=== PATIENT | female | born 1965 | race Caucasian/White ===

== ENCOUNTER 2022-07-29 16:42 | Outpatient (CLI) | payer OTHER, SELFPAY ==
--- NOTE | 2022-07-29 17:15 | CRLHL7_ITS ---
For Patients: As a result of the Cures Act, medical imaging exams and procedure reports are released immediately into your electronic medical record. You may view this report before your referring provider. If you have questions, please contact your health care provider. BILATERAL SCREENING MAMMOGRAM WITH COMPUTER-AIDED DETECTION AND TOMOSYNTHESIS TECHNIQUE: CC and MLO views were obtained. These mammographic images have been obtained using full-field digital technique. These mammographic images were interpreted with the benefit of computer-aided detection. Breast Tomosynthesis was used in this interpretation. COMPARISON FILM: 05/28/21, 04/06/20, 08/24/18. FINDINGS: There are scattered areas of fibroglandular density IMPRESSION: There is no radiographic evidence for malignancy. ASSESSMENT: BI-RADS Category 1: Negative RECOMMENDATION: Routine screening mammogram in 1 year. A lay language report of this examination will be provided to the patient. Shin Mercer M.D. Diagnostic Radiologist [email or web address] TALIA/rosenda / be/Dictated by: Sihn Mercer MD @ 07/30/2022 11:54:00 AM (Electronically Signed)
== END 2022-07-29 16:43 | disposition home or self-care (01) ==
LOC: MAMMO 16:45
PROVIDERS: PCP Family Medicine; Visit Provider Family Medicine
DX: Z12.31 Encounter for screening mammogram for malignant neoplasm of breast (principal)
CPT/HCPCS: 77063; 77067

== ENCOUNTER 2023-02-06 13:47 | Outpatient (CLI) | payer BC, SELFPAY ==
--- NOTE | 2023-02-06 14:00 | CRLHL7_ITS ---
For Patients: As a result of the Century Cures Act, medical imaging exams and procedure reports are released immediately into your electronic medical record. You may view this report before your referring provider. If you have questions, please contact your health care provider. INDICATION: Hematuria. TECHNIQUE: CT abdomen and pelvis urogram without and with 100 cc Isovue 370 IV contrast. Contrast images were obtained in the nephrographic and delayed phases. COMPARISON: None. FINDINGS: KIDNEYS: The unenhanced images demonstrate no kidney or ureteral stones. The kidneys are normal in caliber and demonstrate normal uptake and excretion of IV contrast. No masses. The renal collecting systems and ureters are symmetrical, normal in caliber, and without evidence of mass or filling defect. URINARY BLADDER: The urinary bladder is normal in caliber and without evidence of mass, wall thickening, or inflammation. OTHER: Lung bases are clear. Multiple small intrahepatic cysts are present. Incidental gallbladder fold noted without gallstones. Spleen normal. Normal pancreas and adrenal glands. No bowel obstruction or free air. Mild nonspecific pelvic free fluid. No abscess. No pelvic mass. No fracture. Multilevel degenerative disc disease throughout the lumbar spine. IMPRESSION: 1. Unremarkable CT urogram. No findings to explain hematuria. 2. Multiple incidental intrahepatic cysts. Please note that all CT scans at this facility use dose modulation, iterative reconstruction, and/or weight-based dosing when appropriate to reduce radiation dose to as low as reasonably achievable. Dictated by Shin Mercer MD @ 02/10/2023 9:59:38 AM (Electronically Signed)
== END 2023-02-06 13:48 | disposition home or self-care (01) ==
LOC: CT 13:49
PROVIDERS: PCP Family Medicine; Visit Provider Family Medicine
DX: R31.9 Hematuria, unspecified (principal); K76.89 Other specified diseases of liver
CPT/HCPCS: 74178; Q9967

== ENCOUNTER 2023-03-09 16:49 | Outpatient (CLI) | payer BC, SELFPAY ==
--- NOTE | 2023-03-09 17:00 | CRLHL7_ITS ---
For Patients: As a result of the Century Cures Act, medical imaging exams and procedure reports are released immediately into your electronic medical record. You may view this report before your referring provider. If you have questions, please contact your health care provider. INDICATION: gross hematuria COMPARISON: none TECHNIQUE: 2D figueroa scale and color Doppler images were acquired of the pelvis using a transabdominal and transvaginal approach. FINDINGS: The uterus is absent. Mild pelvic free fluid is noted. The right ovary is absent. Left ovary measures 1.4 x 0.9 x 1.2 cm. The left ovary demonstrates normal arterial and venous blood flow on color Doppler analysis. IMPRESSION: Normal left ovary. Status post hysterectomy and right oophorectomy. Dictated by Shin Mercer MD @ 03/10/2023 10:41:20 AM (Electronically Signed)
== END 2023-03-09 16:50 | disposition home or self-care (01) ==
LOC: US 16:50
PROVIDERS: PCP Family Medicine; Visit Provider Family Medicine
DX: R31.0 Gross hematuria (principal)
CPT/HCPCS: 76830; 76856

== ENCOUNTER 2023-08-31 07:29 | Outpatient (CLI) | payer BC, SELFPAY ==
--- NOTE | 2023-08-31 07:45 | MM_ITS ---
Patient: AILEEN WU Facility:?[facility] Patient ID:?[id number] Site Patient ID:?[id number]. Site :?[id number] Study:?XRay-Breast Bilateral 3D W/CAD-08/31/2023 8:01:29 AM Ordering Physician:?Narayan Ortega Final Report: BILATERAL SCREENING MAMMOGRAM WITH COMPUTER-AIDED DETECTION AND TOMOSYNTHESIS TECHNIQUE: CC and MLO views were obtained. These mammographic images have been obtained using full-field digital technique. These mammographic images were interpreted with the benefit of computer-aided detection. Breast tomosynthesis was used in this interpretation. COMPARISON FILM: 07/29/22, 05/28/21/, 04/03/21. FINDINGS: There are scattered areas of fibroglandular density. IMPRESSION: There is no radiographic evidence for malignancy. ASSESSMENT: BI-RADS Category 1: Negative RECOMMENDATION: Routine screening mammogram in 1 year. A lay language report of this examination will be provided to the patient. HARSH BUENO M.D. Diagnostic Radiologist [email or web address] TALIA/yamini D& Transcribed: 5:[address]/Dictated by: Harsh Bueno MD @ 09/10/2023 12:55:00 PM Signed by:?Harsh Bueno MD @09/10/2023 8:24:20 PM (Electronic Signature)
== END 2023-08-31 07:30 | disposition home or self-care (01) ==
LOC: MAMMO 07:30
PROVIDERS: PCP Family Medicine; Visit Provider Family Medicine
DX: Z12.31 Encounter for screening mammogram for malignant neoplasm of breast (principal)
CPT/HCPCS: 77063; 77067

== ENCOUNTER 2023-11-18 10:00 | Outpatient (CLI) | payer BC, SELFPAY ==
--- OUTSIDE RECORDS SUMMARY | 2023-11-18 10:06 | XMS_ITS | Data Portability ---
Author Organization [facility] Perilo gy, [facility] Address [address] [place] [address] Care Team Providers Care Senior Account Clerk Name Role Phone MACI CARL Primary Care Provider Assessment No assessment recorded. Plan of Treatment Reminders Order Date Submit Date Provider Last Modified By Organization Details Last Modified Time Details Appointments None recorded. Lab urinalysi s, dipstick 2023 024 [facility], [address] [place] [address], [address], [address], Ph 4 11:56:59 urinalysi s, dipstick 2022 023 [email or web address], [address] [place] [address], [facility] [address], [address], Ph 3 10:04:05 Referral None recorded. Procedures bladder scan (PROC) 2023 024 [facility], [address] [place] [address], [facility] [address], [address], Ph 4 11:56:59 Surgeries None recorded. Imaging None recorded. Medication Orders None recorded. Patient TargetsNo targets recorded. Patient Instructions Encounter Date Encounter Id Patient Instructions Last Modified By Organization Details Last Modified Time 08/13/2023 [id number] Jade Jmrenan i s a 58-year-old female who was referred to me for further evaluation and management of gross hematuria. Patient was last seen by her primary care provider on 01/23/2023. All outside documents personally reviewed and interpreted. She has history of hypertension and hypothyroidism. She complained of recurrent urinary tract infections associated with lower abdominal pain and suprapubic pain. Noticed a single episode of gross hematuria. History of hysterectomy. No dysuria. No flank pain. She was treated with cefuroxime 500 mg twice daily for a suspected urinary tract infection. Urinalysis ultimately was negative. CT urogram was performed 02/11/2023. This was unremarkable. 02/12/2023: She underwent cystoscopy for hematuria workup. This was unremarkable. She complained of minimal bother from stress urinary incontinence but did complain of overactive bladder. She was counseled regarding behavioral modifications for overactive bladder symptoms. She returns today for follow-up. Reviewed options for OAB and incontinence. Not a concern at this time. Discussed PFPT initially if symptoms become bothersome. She is interested in observation at this time. Hematuria has resolved. Plan: - Follow up with gynecology regarding labial cyst - Monitor OAB and incontinence symptoms - Hematuria has resolved - Follow up with de DENICE dolan Not available 08/13/2023 10:51:52 02/12/2023 [id number] Jade Lynn i s a 57-year-old female who was referred to me for further evaluation and management of gross hematuria. Patient was last seen by her primary care provider on 01/23/2023. All outside documents personally reviewed and interpreted. She has history of hypertension and hypothyroidism. She complained of recurrent urinary tract infections associated with lower abdominal pain and suprapubic pain. Noticed a single episode of gross hematuria. History of hysterectomy. No dysuria. No flank pain. She was treated with cefuroxime 500 mg twice daily for a suspected urinary tract infection. Urinalysis ultimately was negative. CT urogram was performed 02/11/2023. This was unremarkable. Long discussion with patient regarding the various possible etiologies of gross hematuria. I advised that these include urinary tract infection, urinary calculus disease, trauma to the urinary tract, vascular malformation within the urinary tract, or urinary tract malignancy, among others. I advised that the work-up for gross hematuria consists of a CT urogram as well as cystoscopy to evaluate the lining of the bladder for malignancy. Cystoscopy showed no concerning findings for stones, tumors, or inflammation. UA negative. Long discussion with patient regarding the pathophysiology of overactive bladder. I discussed with her behavioral modifications for symptom improvement including increasing fluid intake, the double voiding twice daily, avoiding bladder irritants, timed voiding, stopping fluid intake 2 hours before bed. Mild bother from ELISABET. Plan: - RTC in 6 months with UA and PVR - Behavioral modifications for OAB symptoms - Monitor ELISABET [email or web address] Not available 02/12/2023 10:34:41 Reason for Referral None Reported. Results Created Date Observation Date Name Description Value Unit Range Abnormal Flag LastModifiedBy Organization Detail LastModifiedTime 02/13/20 23 02/12/2023 urina lysis , dipst ick pH 7.0 Not Available [address], [place], [address], Ph 02/12/2023 10:03:40 08/13/19 24 08/13/2023 urina lysis , dipst ick pH 6.5 Not Available [address], [place], [address], Ph 08/13/2023 10:40:53 08/13/19 24 08/13/2023 bladd er scan (PROC ) Volume (in mL) 0 Not Available [address], [place], [address], Ph 08/13/2023 10:40:57 02/12/[address], urogr am No observ ation record ed. [id number] Not Available 023 13:07:40 Result Notes None recorded. Problems Name Status Onset Date Resolution Date Notes Provider Name and Address Organization Details Recorded Time Rajendra hematuria Active 02/12/20 Jeremias Blunt MD [address] [place] [address],[address], [address], [facility] 02/11/2023 21:38:17 Overactive bladder Active 02/13/20 Jeremias Blunt MD [address] [place] [address],[address], [address], [facility] 02/12/2023 10:26:47 Female stress incontinence Active 02/13/20 23 Jeremias Blunt MD [address] [facility] [phone], [facility] 02/12/2023 10:27:14 Problem Notes None recorded. Procedures Surgical History Date Name Laterality Status Provider Name and Address Organization Details Recorded Time 02/13/20 23 Cystoscopy- female completed Jeremias Blunt MD [address] [place] [address],[address], [place] [phone], [facility] 02/11/2023 21:38:11 02/16/20 15 Colonoscopy completed Poornima Garcia [facility] 02/12/2023 09:56:25 thyroidectomy completed Tonja Alonso [facility] 02/05/2023 15:14:56 hysterectomy completed Viiv Beckwith [facility] 02/11/2023 14:43:18 Imaging Results Imaging Date Name Status LastModified by Organiz ation Details LastModified Time 02/11/2023 CT, urogram completed [id number] Informati on not available 02/11/2023 13:07:40 Procedure Notes None recorded. Medical Equipment None Reported. Allergies Allergen ID Allergen Name Allergen Category Reaction Reaction Severity Criticality Documentation Date Start Date Code Code System Note Provider Name and Address Organization Details Recorded Time 009760 Substance with sulfonami de structure and antibacte rial mechanism of action (substanc e) medicatio n Not available Not available Not available 02/12/2023 74237 8003 SNOMED Poornima Garcia [facility] 3 09:55:05 423218 Product containin g angiotens in-conver ting enzyme inhibitor (product) medicatio n Not available Not available Not available 02/12/2023 52924 009 SNOMED Poornima Garcia [facility] 3 09:55:11 Medications Name Sig Start Date Stop Date Status Note LastModified by Organization Details LastModified Time losartan 25 mg tablet TAKE ONE TABLET BY MOUTH ONCE DAILY active Not Available Not Available No t Available cefuroxime axetil 500 mg tablet TAKE ONE TABLET BY MOUTH TWICE A DAY FOR 7 DAYS 02/12 completed Not Available Not Available Not Available atenolol 50 mg tablet TAKE ONE TABLET BY MOUTH ONCE DAILY active Not Available Not Available No t Available levothyroxine 112 mcg tablet TAKE ONE TABLET BY MOUTH ONCE DAILY active Not Available Not Available No t Available Vitals Date Recorded Body height Body mass index (BMI) Body weight Heart rate Body temperature Oxygen saturation Oxygen saturation in Arterial blood by Pulse oximetry Systolic blood pressure Diastolic blood pressure Provider Name and Address Organization Details Last Updated DateTime 157.48 cm 32.8 kg/m2 90592 g 49 /min 98.24 [degF] 99 % 99 % 145 mm[Hg] 71 mm[Hg] Tonja Alonso [facility] 15:11:29 Date Recorded Body height Body mass index (BMI) Body weight Provider Name and Address Organization Details Last Updated DateTime 02/12/2023 157.48 cm 32 kg/m2 10031.66 g Poornima Garcia [facility] 02/12/2023 09:54:56 Date Recorded Body height Body mass index (BMI) Body weight Provider Name and Address Organization Details Last Updated DateTime 08/13/2023 157.48 cm 32 kg/m2 46689.66 g Jami Chávez [facility] 08/13/2023 10:26:41 Social History Question Answer Notes LastModified by Organizat ion Details LastModified Time Tobacco Smoking Status Never Smoker Tonja Alonso [facility] 02/05/2023 15:16:12 What Is Your Level Of Alcohol Consumption? Occasional Information not available 02/12/2023 What Is Your Level Of Caffeine Consumption? Moderate Information not available 02/12/2023 Ethnicity Not /Latin o Information not available 02/12/2023 Preferred Language German Information not available 02/12/2023 What Was The Date Of Your Most Recent Tobacco Screening? 08/13/2023 [email or web address] Information not available 08/13/2023 Have You Ever Been Counseled For Unhealthy Alcohol Use? No Information not available 02/12/2023 What Is Your Relationship Status? Information not available 02/12/2023 Do You Use Any Illicit Or Recreational Drugs? No [email or web address] Information not available 02/11/2023 Has Tobacco Cessation Counseling Been Provided? No [email or web address] Information not available 02/05/2023 Do You Or Have You Ever Used Any Other Forms Of Tobacco Or Nicotine? No [email or web address] Information not available 02/05/2023 How Many Days In The Past Year Have You Consumed 4 Or More Drinks? 0 Information no t available 02/12/2023 Sex: Female Functional Status None recorded. Mental Status None recorded. Family History Relationship Description Onset Age of this Age Resolved Age Notes Unspecified Relation Family history of breast cancer Unspecified Relation Family history of diabetes mellitus Unspecified Relation Family history of ischemic heart disease Unspecified Relation Family history of Hypothyroidism Unspecified Relation Family history of Hypertension Father Family history of malignant neoplasm of kidney Medical History Condition Response Sexually Transmitted Infection N Diabetes N Other Y Bleeding Disorder N High Blood Pressure Y Kidney Stones N High Cholesterol N GERD/Acid Reflux N Heart Disease N Cancer N Depression N Lung Disease Y Gynecological HistoryNo gynecological history recorded. Obstetrics History GPAL:G 0 P 0 0 0 0 Immunizations Vaccine Type Date Status Provider Name and Address Organization Details Recorded Time influenza, unspecified formulation 03/20/2010 [facility]/12[facility]23 09:53:55 influenza, unspecified formulation 05/01/2015 [facility] 02/12/2023 09:53:55 Tdap 02/10/2007 [facility] 02/12/2023 09:53:55 Influenza, split virus, trivalent, preservative 03/02/2013 [facility] 02/12/2023 09:53:55 Influenza, split virus, trivalent, preservative 03/19/2011 [facility] 02/12/2023 09:53:55 Influenza, split virus, trivalent, preservative 05/24/2012 [facility] 02/12/2023 09:53:55 Novel [id number] 04/27/2009 [facility] 02/12/2023 09:53:55 Td (adult), 2 Lf tetanus toxoid, preservative free, adsorbed 11/27/2020 completed Poornima nolan, [facility] 02/12/2023 09:53:55 Td (adult), 2 Lf tetanus toxoid, preservative free, adsorbed 05/17/2014 completed Poornima Garcia ovidio, [facility] 02/12/2023 09:53:55 Influenza, split virus, quadrivalent, PF 03/21/2019 completed Poornima Garcia ovidio, [facility] 02/12/2023 09:53:55 Influenza, split virus, quadrivalent, PF 04/17/2017 completed Poornima nolan, [facility] 02/12/2023 09:53:55 Influenza, split virus, quadrivalent, PF 04/27/2009 [facility] 09:53:55 Past Encounters Encounter ID Performer Location Encounter Start Date Encounter Closed Date Diagnosis/Indication Diagnosis SNOMED-CT Code [id number] Jeremias Blunt MD [address] [place] [address] 02/12/2023 09:45:40 02/12/2023 10:42:26 Rajendra hematuria [id number] Overactive bladder [address] incontinence [id number] Jeremias Blunt MD [address] [place] [address] 08/13/2023 10:24:25 08/13/2023 11:42:42 Female stress incontinence 01531534 Rajendra hematuria 32473190 5 Overactive bladder 58255 7000 Health Concerns Section Related Observation LastModified by Organization Detai ls LastModified Time None Recorded Concern Status LastModified by Organization Details LastModified Time None Recorded Advance Directives Directive None Recorded Payers Encounter Date Sequence Insurance Name Policy Number Policy Altamirano Covered Member ID Altamirano Member ID Guarantor Name 08/13/2023 1 [employer] [id number] Jade Lynn [id number] Jade Lynn 02/12/2023 1 [employer] [id number] Jade Lynn [id number] Jade Lynn Notes Date Note Type Note Provider Name and Address Organization Details Recorded Time 02/12/2023 text/html HPI Notes: Kiah Lynn is a 57-year-old female who was referred to de for further evaluation and management of gross hematuria. Patient was last seen by her primary care provider on 01/23/2023. All outside documents personally reviewed and interpreted. She has history of hypertension and hypothyroidism. She complained of recurrent urinary tract infections associated with lower abdominal pain and suprapubic pain. Noticed a single episode of gross hematuria. History of hysterectomy. No dysuria. No flank pain. She was treated with cefuroxime 500 mg twice daily for a suspected urinary tract infection. Urinalysis ultimately was negative. CT urogram was performed 02/11/2023. This was unremarkable. Patient had not had prior episodes of blood in her urine. Patient started to drink more water and the hematuria cleared up. No kidney stones. Patient has a history of UTIs, less than one a year. Patient has had a hysterectomy. Still has one ovary. No known toxin exposure. Jeremias Blunt MD [address] [place] [address],[address], [place], [address], [facility] 02/12/2023 10:34:58 08/13/2023 text/html HPI Notes: Kiah Lynn is a 58-year-old female who was referred to de for further evaluation and management of gross hematuria. Patient was last seen by her primary care provider on 01/23/2023. All outside documents personally reviewed and interpreted. She has history of hypertension and hypothyroidism. She complained of recurrent urinary tract infections associated with lower abdominal pain and suprapubic pain. Noticed a single episode of gross hematuria. History of hysterectomy. No dysuria. No flank pain. She was treated with cefuroxime 500 mg twice daily for a suspected urinary tract infection. Urinalysis ultimately was negative. CT urogram was performed 02/11/2023. This was unremarkable. 02/12/2023: She underwent cystoscopy for hematuria workup. This was unremarkable. She complained of minimal bother from stress urinary incontinence but did complain of overactive bladder. She was counseled regarding behavioral modifications for overactive bladder symptoms. She returns today for follow-up. Has been seen by her OB recently for evaluation of a hymenal tag. That was removed and was found to be benign. Also reports a blood blister just inside the labia. 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 No recurrent gross hematuria. No voiding concerns today. Denied frequency or urgency. Wears a light pad for the incontinence. Denied any ELISABET. Not a concern. Jeremias Blunt MD [address], [place], [address], [facility] 08/13/2023 11:37:51 OBGyn Episode No OBEpisode recorded.
--- OUTSIDE RECORDS SUMMARY | 2023-11-18 10:06 | XMS_ITS | Clinical Summary ---
Author Organization [facility] Address [place], [place] [address] Care Team Providers Care Post Office Markup Clerk Name Role Phone Shin Rice MD Primary Care Provider [phone]- [phone] Allergies Active Allergy Reactions Criticality Noted Date Comments Sulfamethoxazole-Trimethoprim 2010 Sulfa (Sulfonamide Antibiotics) 08/06 Medications Medication Sig Dispensed Refills Start Date End Date Status ATENOLOL ORAL Take by mouth. Active medication order composerIndications :hypertension 1 tablet once daily. Indications: HYPERTENSION Active Levothyroxine 125 mcg cap Take 1 tablet by mouth once daily. Active valsartan-hydrochlo rothiazide, 80-12.5 mg, (DIOVAN HCT) 80-12.5 mg tablet Take 1 tablet by mouth once daily. 0 10/24/2014 Active Family History Medical History Relation Name Comments Cancer Father kidney Cancer-breast Mother age 55 of breast c Cancer-breast Sister dx'd age 43 Cancer-colon No Family History Cancer-ovarian No Family History Cancer-prostate No Family History Relation Name Status Comments Father kidney Alive Mother age 55 of breast c Sister Social History Tobacco Use Types Packs/Day Years Used Date Smoking Tobacco: Never Smokeless Tobacco: Never Alcohol Use Standard Drinks/Week Comments No 0 (1 standard drink = 0.6 oz pur e alcohol) Sex and Gender Information Value Date Recorded Sex Assigned at Not on file Gender Identity Not on file Sexual Orientation Not on file Obstetrics History Para Term AB IAB SAB Ectopic Multiple Livin g Live Births 4 2 2 2 2 2 Date Outcome GA Total Labor Labor/2nd/3rd Weight Sex Type Anes PTL Maile A1 A5 Name Clin SAB SAB Term Term Last Filed Vital Signs Vital Sign Reading Time Taken Comments Blood Pressure 112/64 10/24/2014 3:44 PM CDT Pulse 76 10/24/2014 3:44 PM CDT Temperature - - Respiratory Rate 18 08/18/2014 3:45 PM CDT Oxygen Saturation 99% 08/18/2014 3:45 PM CDT Inhaled Oxygen Concentration - - Weight 74.1 kg (163 lb 6.4 oz) 10/24/2014 3:44 P M CDT Height 157.5 cm (5' 2) 08/22/2010 10:45 AM CDT Body Mass Index 29.89 08/22/2010 10:45 AM CDT Plan of Treatment Health Maintenance Due Date Last Done Comments Tdap 02/22/1975 Depression screening for age 12+ 1976 HIV for age 15-65 02/22/1979 BMI (ht and wt on same day) for age 18+ 02/22/1982 Hepatitis C screening for age 18-79 02/22/1982 Tetanus booster 1984 Pap test for age 21-65 02/22/1985 Lipids for age 45-75 02/22/2009 Zoster (shingles) series for age 50+ (1 of 2) 02/22/2014 Mammogram for age 45-75 08/26/2016 08/27/19 16, 06/29/2014, 06/14/2013, Additional history exists COVID-19 vaccine series ( - 2022-24 season) 2023 Influenza for age 50-64 02/07/2024 Colonoscopy through age 75 08/18/2024 08/18/2014 Pneumococcal series for age 6-64 Aged Out No longer eligible based on patient's age to complete this topic Procedures Procedure Name Priority Date/Time Associated Diagnosis Comments XR MAMMO BILAT SCREEN FFDM (IA) Routine 08/27/2015 11:46 AM CDT Visit for screening mammogram COLONOSCOPY 08/18/2014 2:16 PM CDT from Last 3 Months or Most Recently Relevant to Health Maintenance Results * XR MAMMO BILAT SCREEN FFDM (08/27/2015 11:46 AM CDT) Anatomical Region Laterality Modality BREASTS, Breast Left, Breast Right Bilateral Mammography Impressions 08/27/2015 1:32 PM CDT ??There is no radiographic evidence for malignancy. ??Recommend annual mammograms. A lay language report of this examination will be provided to the patient. MAMMOGRAM ASSESSMENT: ??ACR 1 Negative Narrative 08/27/2015 1:32 PM CDT XR MAMMO BILAT SCREEN FFDM [G0202.0] CLINICAL HISTORY: ??This is an asymptomatic 50 y.o. patient. INDICATION FOR EXAM: Mammogram Screening. TECHNIQUE: CC & MLO views were obtained. ??This digital study was evaluated with the assistance of Computer-Aided Detection. COMPARISON FILM: Yes 06/29/14 [facility] 06/14/13 [facility] FINDINGS: ??Mammographically, the breast tissue has scattered fibroglandular densities. ??There are no dominant masses, suspicious micro calcifications or areas of architectural distortion. Shin Rice MD MAMMO * COLONOSCOPY (08/18/2014 2:16 PM CDT) 08/18/2014 2:16 PM CDT Narrative 08/18/2014 2:16 PM CDT Endoscopy Patient Name: Jade Lynn ?Procedure Date: 08/18/2014 ? Gender: Female ? Date of : 1965 Admit Type: Outpatient ? Procedure: ?Colonoscopy Proceduralist: ?Phil Baker MD - [facility] ?[place] Referring : ? Shin Rice Indications/Pre-Op Diagnosis: Screening for colorectal malignant neoplasm, ?This is the patient's first colonoscopy Medications: ?Midazolam 4 mg IV, Fentanyl 200 micrograms IV ? Procedure Description: ? The patient had risks, benefits and alternatives explained to and gave ? informed consent. The patient had a stable cardiopulmonary status and ? judged an adequate candidate for conscious sedation. ? The endoscope was passed through the anus and advanced to the cecum, ? identified by appendiceal orifice and ileocecal valve. The colonoscopy ? was performed without difficulty. The patient tolerated the procedure ? well. The quality of the bowel preparation was good. ? Complications: ?No immediate complications. Estimated Blood Loss & Specimen: ? Estimated blood loss: none. ? Specimen collected: None ? Findings: ? The perianal and digital rectal examinations were normal. ? The entire examined colon appeared normal on direct and retroflexion ? views. ? Impressions/Post-Op Diagnosis: ? - The entire examined colon is normal on direct and retroflexion views. ? Recommendation: ? - Use fiber, for example Citrucel, Fibercon, Konsyl or Metamucil. ? - Repeat colonoscopy in 10 years for surveillance. ? Phil Baker MD 08/18/2014 2:53 PM This report has been signed electronically. Note Initiated On: 08/18/2014 2:16 PM Total Procedure Duration Time 0 hours 16 minutes 51 seconds Scope Withdrawal Time 0 hours 8 minutes 29 seconds Procedure Note Phil Baker MD - 08/18/2014 2:53 PM CDT Endoscopy Patient Name: Jade Lynn Procedure Date: 08/18/2014 Gender: Female Date of : 1965 Admit Type: Outpatient Procedure: Colonoscopy Proceduralist: Phil Baker MD - [facility] Referring MD: Shin Rice Indications/Pre-Op Diagnosis: Screening for colorectal malignant neoplasm, This is the patient's first colonoscopy Medications: Midazolam 4 mg IV, Fentanyl 200 microgramsIV Procedure Description: The patient had risks, benefits and alternatives explained to andgave informed consent. The patient had a stable cardiopulmonary status and judged an adequate candidate for conscious sedation. The endoscope was passed through the anus and advanced to the cecum, identified by appendiceal orifice and ileocecal valve. Thecolonoscopy was performed without difficulty. The patient tolerated the procedure well. The quality of the bowel preparation was good. Complications: No immediate complications. Estimated Blood Loss & Specimen: Estimated blood loss: none. Specimen collected: None Findings: The perianal and digital rectal examinations were normal. The entire examined colon appeared normal on direct and retroflexion views. Impressions/Post-Op Diagnosis: - The entire examined colon is normal on direct and retroflexionviews. Recommendation: - Use fiber, for example Citrucel, Fibercon, Konsyl or Metamucil. - Repeat colonoscopy in 10 years for surveillance. Phil Baker MD 08/18/2014 2:53 PM This report has been signed electronically. Note Initiated On: 08/18/2014 2:16 PM Total Procedure Duration Time 0 hours 16 minutes 51 seconds Scope Withdrawal Time 0 hours 8 minutes 29 seconds Phil Baker MD PROCEDURE ORD from Last 3 Months or Most Recently Relevant to Health Maintenance Advance Directives * Full Code (Latest Code Status on File) Date Activated Date Inactivated Comments 08/18/2014 1:50 PM 08/18/2014 5:57 PM Care Teams Post Office Markup Clerk Relationship Specialty Start Date End Date Shin Rice MD [address] [place] [address] [address] [place] [id number] PCP - General 01/19/07
== END 2023-11-18 10:01 | disposition home or self-care (01) ==
PROVIDERS: PCP Family Medicine; Visit Provider Family Medicine
DX: Z00.00 Encounter for general adult medical examination without abnormal findings (principal); I10 Essential (primary) hypertension; E03.9 Hypothyroidism, unspecified; Z13.0 Encounter for screening for diseases of the blood and blood-forming organs and certain disorders involving the immune mechanism; Z13.6 Encounter for screening for cardiovascular disorders
CPT/HCPCS: 80048; 80061; 84439; 84443

== ENCOUNTER 2024-05-13 11:42 | Outpatient (CLI) | payer BC, SELFPAY ==
--- OUTSIDE RECORDS SUMMARY | 2024-05-13 11:45 | XMS_ITS | Clinical Summary ---
Author Organization [facility] Address [place], [place] [address] Care Team Providers Care Registered Nursing Professor Name Role Phone Shin Rice MD Primary Care Provider +1- [phone] Allergies Active Allergy Reactions Criticality Noted Date [...] 06/14/2013, Additional history exists COVID-19 vaccine series (2023- season) 2024 Influenza for age 50-64 02/07/2024 Colonoscopy through [...] Bilateral Mammography Impressions 08/27/2015 1:32 PM CDT There is no radiographic evidence for malignancy. Recommend annual mammograms. A lay language report of this examination will be provided to the patient. MAMMOGRAM ASSESSMENT: ACR 1 Negative Narrative 08/27/2015 1:32 PM CDT XR MAMMO BILAT SCREEN FFDM [G0202.0] CLINICAL HISTORY: This is an asymptomatic 50 y.o. patient. INDICATION FOR EXAM: Mammogram Screening. TECHNIQUE: CC & MLO views were obtained. This digital study was evaluated with the assistance of Computer-Aided Detection. COMPARISON FILM: Yes 06/29/14 [facility] 06/14/13 [facility] FINDINGS: Mammographically, the breast tissue has scattered fibroglandular densities. There are no dominant masses, suspicious micro calcifications or areas of architectural distortion. Shin Rice MD MAMMO * COLONOSCOPY (08/18/2014 2:16 PM CDT) 08/18/2014 2:16 PM CDT Narrative 08/18/2014 2:16 PM CDT Endoscopy Patient Name: Jade Lynn Procedure Date: 08/18/2014 Gender: Female Date of : 1965 Admit Type: Outpatient Procedure: Colonoscopy Proceduralist: Phil Baker MD - [facility] Referring MD: Shin Rice Indications/Pre-Op Diagnosis: Screening for colorectal malignant neoplasm, This is the patient's first colonoscopy Medications: Midazolam 4 mg IV, Fentanyl 200 micrograms IV Procedure Description: The patient had risks, benefits and alternatives explained to and gave informed consent. The patient had a stable cardiopulmonary status and judged an adequate candidate for conscious sedation. The endoscope was passed through the anus and advanced to the cecum, identified by appendiceal orifice and ileocecal valve. The colonoscopy was performed without difficulty. The patient tolerated [...] is normal on direct and retroflexion views. Recommendation: - Use fiber, for example Citrucel, [...] Procedure: Colonoscopy Proceduralist: Phil Baker MD - [facility] Referring MD: Shin Rice Indications/Pre-Op Diagnosis: Screening [...] 1:50 PM 08/18/2014 5:57 PM Care Teams Registered Nursing Professor Relationship Specialty Start Date End Date Shin Rice MD [address] [facility] [address] [place] [id number] PCP - General 01/19/07
== END 2024-05-13 11:43 | disposition home or self-care (01) ==
PROVIDERS: PCP Family Medicine; Visit Provider Family Medicine
DX: E89.0 Postprocedural hypothyroidism (principal)
CPT/HCPCS: 84439; 86235

== ENCOUNTER 2024-09-27 15:25 | Outpatient (CLI) | payer BC, SELFPAY ==
--- NOTE | 2024-09-27 15:40 | CRLHL7_ITS ---
For Patients: As a result of the Century Cures Act, medical imaging exams and procedure reports are released immediately into your electronic medical record. You may view this report before your referring provider. If you have questions, please contact your health care provider. INDICATION: BILATERAL SCREENING MAMMOGRAM, ASYMPTOMATIC 60 F COMPARISON: 08/31/23, 07/29/22, 05/28/21 TECHNIQUE: CC and MLO views were obtained. These mammographic images have been obtained using full-field digital technique. These mammographic images were interpreted with the benefit of computer aided detection and tomosynthesis. BREAST COMPOSITION: There are scattered areas of fibroglandular density. FINDINGS: No suspicious findings. ASSESSMENT: BI-RADS 2 Benign RECOMMENDATION: Annual screening mammogram. A lay language report of this examination will be provided to the patient. Dictated by: Shin Mercer MD @ 09/29/2024 12:47:47 (Electronically Signed)
== END 2024-09-27 15:26 | disposition home or self-care (01) ==
LOC: MAMMO 15:26
PROVIDERS: PCP Family Medicine; Visit Provider Family Medicine
DX: Z12.31 Encounter for screening mammogram for malignant neoplasm of breast (principal)
CPT/HCPCS: 77063; 77067

== ENCOUNTER 2025-02-13 08:19 | Outpatient (CLI) | payer BC, SELFPAY | END 2025-02-13 08:20 | disposition home or self-care (01) | PROVIDERS: PCP Family Medicine; Visit Provider Family Medicine | DX: I10 Essential (primary) hypertension (principal); E89.0 Postprocedural hypothyroidism; Z13.6 Encounter for screening for cardiovascular disorders | CPT/HCPCS: 80048; 80061; 84439; 84443 ==